=== PATIENT | female | born 1965 | race Caucasian/White ===

== ENCOUNTER 2018-02-01 10:47 | Day surgery (SDC) | payer BC ==
[2018-02-01] MEDS ORDERED: PROPOFOL 40 ML (12:44)
[2018-02-01] MEDS ORDERED: MIDAZOLAM 1 MG/ML 2 ML INJ (12:44)
[2018-02-01] MEDS ORDERED: FENTAnyl 50 MCG/ML VIAL ×2 (12:44→13:46)
[2018-02-01] MEDS ORDERED: CEFAZOLIN 1 GM INJ (12:44)
[2018-02-01] MEDS ORDERED: ONDANSETRON 4 MG INJ (12:45)
[2018-02-01] MEDS ORDERED: FAMOTIDINE 20 MG INJ (12:45)
[2018-02-01] MEDS ORDERED: DEXAMETHASONE 4 MG/ML 1 ML INJ (12:45)
[2018-02-01] MEDS ORDERED: GLYCOPYRROLATE 0.4 MG INJ (13:38)
[2018-02-01] MEDS ORDERED: KETOROLAC 30 MG INJ (13:39)
[2018-02-01] MEDS ORDERED: PROVENTIL HFA 6.7GM INHALER (13:54)
[2018-02-01] MEDS ORDERED: DIPHENHYDRAMINE 50 MG INJ IV (14:30)
[2018-02-01] MEDS ORDERED: FENTAnyl 50 MCG/ML VIAL IV ×2 (14:30)
[2018-02-01] MEDS ORDERED: ALBUTEROL 0.083% (NEB) 2.5 MG/3 ML AMP HHN (14:30)
[2018-02-01] MEDS ORDERED: LABETALOL HCL 20MG INJ IV (14:30)
[2018-02-01] MEDS ORDERED: HYDROmorphONE 1 MG/5 ML IV SYRINGE IV ×2 (14:30)
[2018-02-01] MEDS ORDERED: morphine (1 MG/ML) 10ML SYRINGE IV ×2 (14:30)
[2018-02-01] MEDS ORDERED: OXYCODONE/ACETAMINOPHEN (5/325) TAB PO ×2 (14:30)
[2018-02-01] MEDS ORDERED: MEPERIDINE 25 MG INJ IV (14:30)
[2018-02-01] MEDS ORDERED: ONDANSETRON 4 MG INJ IV (14:30)
== END 2018-02-01 15:18 | disposition home or self-care (01) ==
LOC: SDS 10:47
DX: N93.8 Other specified abnormal uterine and vaginal bleeding (principal)
CPT/HCPCS: 58120; 86850; 86900; 86901; 88305

== ENCOUNTER 2018-05-16 13:25 | Inpatient (IN) | payer BC ==
[~2018-05-16 13:25] MED LIST: LIDOCAINE 2% (SDV) 5 ML INJ
[2018-05-16 15:07] LABS: HEMATOCRIT 27.3 % (37.0-47.0); HEMOGLOBIN 8.3 g/dl (12.0-16.0)
[2018-05-16] MEDS ORDERED: ALBUTEROL 0.083% (NEB) 2.5 MG/3 ML AMP HHN (15:30)
[2018-05-16] MEDS ORDERED: DIPHENHYDRAMINE 50 MG INJ IV ×2 (15:30→18:00)
[2018-05-16] MEDS ORDERED: FENTAnyl 50 MCG/ML VIAL IV (15:30)
[2018-05-16] MEDS ORDERED: METOCLOPRAMIDE 10 MG INJ IV (15:30)
[2018-05-16] MEDS ORDERED: ROPIVACAINE 0.5 % 30 ML VIAL (15:57)
[2018-05-16] MEDS ORDERED: FENTAnyl 50 MCG/ML VIAL (15:57)
[2018-05-16] MEDS ORDERED: ROCURONIUM 50 MG INJ (17:35)
[2018-05-16] MEDS ORDERED: PROPOFOL 20 ML (17:35)
[2018-05-16] MEDS ORDERED: SUCCINYLCHOLINE CHLORIDE 100 MG/5 ML SYG IV (17:35)
[2018-05-16] MEDS ORDERED: GLYCOPYRROLATE 0.4 MG INJ (17:35)
[2018-05-16] MEDS ORDERED: CEFAZOLIN 1 GM INJ (17:35)
[2018-05-16] MEDS ORDERED: NEOSTIGMINE 10 MG INJ (17:35)
[2018-05-16] MEDS ORDERED: ONDANSETRON 4 MG INJ IV (18:00)
[2018-05-16] MEDS ORDERED: ACETAMINOPHEN 325 MG TAB PO (18:00)
[2018-05-16] MEDS: MEPERIDINE 25 MG INJ IV (18:10)
[2018-05-16] MEDS: ONDANSETRON 4 MG INJ IV (18:11)
[2018-05-16] MEDS: HYDROmorphONE 1 MG/5 ML IV SYRINGE IV ×5 (18:15→18:40)
[2018-05-16] MEDS: HYDROCODONE/APAP (5/325) TAB PO (18:44)
[2018-05-16 18:45] LABS: ADD MAN DIFF? NO
[2018-05-16 18:47] LABS: WHITE BLOOD COUNT 16.4 10^3/ul (4.8-10.8)
[2018-05-16 18:47] LABS: BASOPHIL # 0.1 10^3/ul (0.0-0.1); BASOPHILS % 0.4 % (0.0-2.0); EOSINOPHILS % 0.1 % (0.0-7.0); HEMATOCRIT 24.5 % (37.0-47.0); HEMOGLOBIN 7.3 g/dl (12.0-16.0); LYMPHOCYTES # 1.3 10^3/ul (0.8-2.9); LYMPHOCYTES % 8.2 % (15.0-51.0); MEAN CORPUSCULAR HGB CONC 29.8 g/dl (32.0-37.0); MEAN CORPUSCULAR VOLUME 90.7 fl (82.0-101.0); MEAN PLATELET VOLUME 11.2 fl (7.4-10.4); MONOCYTE # 0.7 10^3/ul (0.3-0.9); MONOCYTES % 4.1 % (0.0-11.0); NEUTROPHIL # 14.2 10^3/ul (1.6-7.5); NEUTROPHILS % 86.6 % (39.0-77.0); PLATELET COUNT 316 10^3/UL (140-415); RED CELL DISTRIBUTION WIDTH 14.8 % (11.5-14.5)
[2018-05-16 18:54] LABS: HOLD TRANSMISSIONS 1
[2018-05-16 19:06] LABS: ANION GAP 9 (5-13); BLOOD UREA NITROGEN 7 mg/dl (7-20); CARBON DIOXIDE 22 mmol/L (21-31); CHLORIDE 108 mmol/L (97-110); CREATININE 0.64 mg/dl (0.44-1.00); Estimated GFR > 60 mL/min (>60); GLUCOSE 129 mg/dl (70-220); POTASSIUM 3.6 mmol/L (3.5-5.1); SODIUM 139 mmol/L (135-144)
[2018-05-16 19:14] LABS: CALCIUM 7.7 mg/dl (8.4-10.2)
[2018-05-16] MEDS: FENTAnyl 50 MCG/ML VIAL IV (19:37)
[2018-05-16] MEDS: D5-NS + KCL 20 MEQ 1,000 ML IV (20:59)
[2018-05-16] MEDS: FAMOTIDINE 20 MG TAB PO (21:00)
[2018-05-17] MEDS: morphine 2 MG INJ IV ×4 (02:29→10:20)
[2018-05-17] MEDS: D5-NS + KCL 20 MEQ 1,000 ML IV ×3 (05:07→20:00)
[2018-05-17 05:43] LABS: ALANINE AMINOTRANSFERASE 27 IU/L (13-69); ALBUMIN 3.2 g/dl (3.3-4.9); ALBUMIN/GLOBULIN RATIO 1.39; ALKALINE PHOSPHATASE 41 IU/L (42-121); ANION GAP 8 (5-13); ASPARTATE AMINO TRANSFERASE 24 IU/L (15-46); BILIRUBIN,INDIRECT 0.1 mg/dl (0-1.1); BILIRUBIN,TOTAL 0.1 mg/dl (0.2-1.3); BLOOD UREA NITROGEN 7 mg/dl (7-20); CALCIUM 8.2 mg/dl (8.4-10.2); CARBON DIOXIDE 23 mmol/L (21-31); CHLORIDE 108 mmol/L (97-110); CREATININE 0.54 mg/dl (0.44-1.00); Estimated GFR > 60 mL/min (>60); GLUCOSE 148 mg/dl (70-220); POTASSIUM 4.2 mmol/L (3.5-5.1); SODIUM 139 mmol/L (135-144); TOTAL PROTEIN 5.5 g/dl (6.1-8.1)
[2018-05-17] MEDS: FAMOTIDINE 20 MG TAB PO ×2 (09:14→20:41)
[2018-05-17 09:35] LABS: ADD MAN DIFF? NO
[2018-05-17 09:39] LABS: BASOPHILS % 0.3 % (0.0-2.0); HEMATOCRIT 23.4 % (37.0-47.0); HEMOGLOBIN 7.1 g/dl (12.0-16.0); LYMPHOCYTES # 0.9 10^3/ul (0.8-2.9); LYMPHOCYTES % 8.6 % (15.0-51.0); MEAN CORPUSCULAR HEMOGLOBIN 27.1 pg (29.0-33.0); MEAN CORPUSCULAR HGB CONC 30.3 g/dl (32.0-37.0); MEAN CORPUSCULAR VOLUME 89.3 fl (82.0-101.0); MEAN PLATELET VOLUME 10.7 fl (7.4-10.4); MONOCYTE # 1.1 10^3/ul (0.3-0.9); MONOCYTES % 10.2 % (0.0-11.0); NEUTROPHIL # 8.6 10^3/ul (1.6-7.5); NEUTROPHILS % 80.5 % (39.0-77.0); PLATELET COUNT 275 10^3/UL (140-415); RED BLOOD COUNT 2.62 10^6/ul (4.20-5.40); RED CELL DISTRIBUTION WIDTH 14.9 % (11.5-14.5)
[2018-05-17 09:39] LABS: WHITE BLOOD COUNT 10.7 10^3/ul (4.8-10.8)
[2018-05-17 09:57] LABS: ANION GAP 7 (5-13); BLOOD UREA NITROGEN 6 mg/dl (7-20); CALCIUM 8.1 mg/dl (8.4-10.2); CARBON DIOXIDE 23 mmol/L (21-31); CHLORIDE 108 mmol/L (97-110); CREATININE 0.55 mg/dl (0.44-1.00); Estimated GFR > 60 mL/min (>60); GLUCOSE 137 mg/dl (70-220); POTASSIUM 4.1 mmol/L (3.5-5.1); SODIUM 138 mmol/L (135-144)
[2018-05-17] MEDS: HYDROmorphONE 0.5 MG/0.5 ML SYG IV (11:07)
[2018-05-17] MEDS: HYDROmorphONE 1 MG/ML SYG IV ×4 (12:55→20:00)
[2018-05-18] MEDS: HYDROmorphONE 1 MG/ML SYG IV ×6 (00:54→17:22)
[2018-05-18] MEDS: D5-NS + KCL 20 MEQ 1,000 ML IV ×2 (04:06→15:16)
[2018-05-18 05:04] LABS: ADD MAN DIFF? NO
[2018-05-18 05:09] LABS: WHITE BLOOD COUNT 8.4 10^3/ul (4.8-10.8)
[2018-05-18 05:09] LABS: ABNORMAL IP MESSAGE 1; BASOPHILS % 0.4 % (0.0-2.0); EOSINOPHILS % 0.1 % (0.0-7.0); HEMATOCRIT 22.8 % (37.0-47.0); LYMPHOCYTES # 0.6 10^3/ul (0.8-2.9); LYMPHOCYTES % 6.9 % (15.0-51.0); MEAN CORPUSCULAR HEMOGLOBIN 26.8 pg (29.0-33.0); MEAN CORPUSCULAR HGB CONC 30.3 g/dl (32.0-37.0); MEAN CORPUSCULAR VOLUME 88.7 fl (82.0-101.0); MEAN PLATELET VOLUME 11.3 fl (7.4-10.4); MONOCYTE # 0.9 10^3/ul (0.3-0.9); MONOCYTES % 11.1 % (0.0-11.0); NEUTROPHIL # 6.8 10^3/ul (1.6-7.5); PLATELET COUNT 280 10^3/UL (140-415); RED BLOOD COUNT 2.57 10^6/ul (4.20-5.40); RED CELL DISTRIBUTION WIDTH 15.4 % (11.5-14.5)
[2018-05-18 05:35] LABS: ANION GAP 5 (5-13); BLOOD UREA NITROGEN 3 mg/dl (7-20); CALCIUM 8.5 mg/dl (8.4-10.2); CARBON DIOXIDE 24 mmol/L (21-31); CHLORIDE 112 mmol/L (97-110); Estimated GFR > 60 mL/min (>60); GLUCOSE 124 mg/dl (70-220); POTASSIUM 3.9 mmol/L (3.5-5.1); SODIUM 141 mmol/L (135-144)
[2018-05-18 05:52] LABS: HEMOGLOBIN 6.9 g/dl (12.0-16.0)
[2018-05-18 05:53] LABS: POSITIVE DIFF @See below
[2018-05-18] MEDS: FAMOTIDINE 20 MG TAB PO ×2 (09:00→21:03)
[2018-05-18] MEDS: ACETAMINOPHEN 325 MG TAB PO (12:17)
[2018-05-18] MEDS: DIPHENHYDRAMINE 50 MG CAP PO (12:17)
[2018-05-18 12:30] LABS: IMMEDIATE SPIN CROSSMATCH 1 1
[2018-05-18] MEDS: HYDROCODONE/APAP (5/325) TAB PO (21:04)
[2018-05-19] MEDS: D5-NS + KCL 20 MEQ 1,000 ML IV ×4 (00:06→23:33)
[2018-05-19] MEDS: HYDROCODONE/APAP (5/325) TAB PO ×2 (02:38→18:16)
[2018-05-19 05:30] LABS: ADD MAN DIFF? NO
[2018-05-19 05:34] LABS: WHITE BLOOD COUNT 6.3 10^3/ul (4.8-10.8)
[2018-05-19 05:34] LABS: BASOPHILS % 0.6 % (0.0-2.0); EOSINOPHILS # 0.1 10^3/ul (0.0-0.5); EOSINOPHILS % 1.3 % (0.0-7.0); HEMOGLOBIN 7.9 g/dl (12.0-16.0); LYMPHOCYTES # 0.8 10^3/ul (0.8-2.9); LYMPHOCYTES % 12.8 % (15.0-51.0); MEAN CORPUSCULAR HEMOGLOBIN 26.8 pg (29.0-33.0); MEAN CORPUSCULAR HGB CONC 31.6 g/dl (32.0-37.0); MEAN CORPUSCULAR VOLUME 84.7 fl (82.0-101.0); MEAN PLATELET VOLUME 11.5 fl (7.4-10.4); MONOCYTE # 0.8 10^3/ul (0.3-0.9); MONOCYTES % 12.1 % (0.0-11.0); NEUTROPHIL # 4.6 10^3/ul (1.6-7.5); NEUTROPHILS % 72.7 % (39.0-77.0); PLATELET COUNT 232 10^3/UL (140-415); RED BLOOD COUNT 2.95 10^6/ul (4.20-5.40); RED CELL DISTRIBUTION WIDTH 15.7 % (11.5-14.5)
[2018-05-19 06:21] LABS: ANION GAP 5 (5-13); BLOOD UREA NITROGEN 3 mg/dl (7-20); CALCIUM 8.4 mg/dl (8.4-10.2); CARBON DIOXIDE 25 mmol/L (21-31); CHLORIDE 109 mmol/L (97-110); CREATININE 0.56 mg/dl (0.44-1.00); Estimated GFR > 60 mL/min (>60); GLUCOSE 94 mg/dl (70-220); POTASSIUM 3.3 mmol/L (3.5-5.1); SODIUM 139 mmol/L (135-144)
[2018-05-19] MEDS: HYDROmorphONE 1 MG/ML SYG IV ×3 (08:58→23:58)
[2018-05-19] MEDS: FAMOTIDINE 20 MG TAB PO ×2 (08:58→21:35)
[2018-05-19] MEDS: POTASSIUM CHLORIDE (SR) 20 MEQ TAB PO (14:43)
[2018-05-20] MEDS: HYDROCODONE/APAP (5/325) TAB PO ×5 (03:34→21:30)
[2018-05-20] MEDS: D5-NS + KCL 20 MEQ 1,000 ML IV ×2 (05:40→13:05)
[2018-05-20] MEDS: FAMOTIDINE 20 MG TAB PO ×2 (08:48→21:30)
[2018-05-20 09:29] LABS: ADD MAN DIFF? NO
[2018-05-20 09:32] LABS: BASOPHILS % 0.7 % (0.0-2.0); EOSINOPHILS # 0.2 10^3/ul (0.0-0.5); EOSINOPHILS % 5.4 % (0.0-7.0); HEMATOCRIT 26.8 % (37.0-47.0); HEMOGLOBIN 8.2 g/dl (12.0-16.0); LYMPHOCYTES # 0.7 10^3/ul (0.8-2.9); LYMPHOCYTES % 17.1 % (15.0-51.0); MEAN CORPUSCULAR HGB CONC 30.6 g/dl (32.0-37.0); MEAN CORPUSCULAR VOLUME 85.1 fl (82.0-101.0); MEAN PLATELET VOLUME 11.6 fl (7.4-10.4); MONOCYTE # 0.6 10^3/ul (0.3-0.9); MONOCYTES % 13.8 % (0.0-11.0); NEUTROPHIL # 2.7 10^3/ul (1.6-7.5); NEUTROPHILS % 62.8 % (39.0-77.0); PLATELET COUNT 243 10^3/UL (140-415); RED BLOOD COUNT 3.15 10^6/ul (4.20-5.40); RED CELL DISTRIBUTION WIDTH 15.9 % (11.5-14.5)
[2018-05-20 09:32] LABS: WHITE BLOOD COUNT 4.3 10^3/ul (4.8-10.8)
[2018-05-20 09:47] LABS: ANION GAP 7 (5-13); BLOOD UREA NITROGEN 3 mg/dl (7-20); CALCIUM 8.7 mg/dl (8.4-10.2); CARBON DIOXIDE 26 mmol/L (21-31); CHLORIDE 108 mmol/L (97-110); CREATININE 0.58 mg/dl (0.44-1.00); Estimated GFR > 60 mL/min (>60); GLUCOSE 101 mg/dl (70-220); POTASSIUM 3.8 mmol/L (3.5-5.1); SODIUM 141 mmol/L (135-144)
[2018-05-20] MEDS ORDERED: HYDROCODONE/APAP (5/325) TAB PO (10:00)
[2018-05-21] MEDS: HYDROCODONE/APAP (5/325) TAB PO ×4 (01:18→22:40)
[2018-05-21 05:17] LABS: ADD MAN DIFF? NO
[2018-05-21 05:24] LABS: BASOPHIL # 0.1 10^3/ul (0.0-0.1); EOSINOPHILS # 0.3 10^3/ul (0.0-0.5); EOSINOPHILS % 6.5 % (0.0-7.0); HEMATOCRIT 27.1 % (37.0-47.0); HEMOGLOBIN 8.5 g/dl (12.0-16.0); LYMPHOCYTES # 1.1 10^3/ul (0.8-2.9); LYMPHOCYTES % 22.1 % (15.0-51.0); MEAN CORPUSCULAR HEMOGLOBIN 26.3 pg (29.0-33.0); MEAN CORPUSCULAR HGB CONC 31.4 g/dl (32.0-37.0); MEAN CORPUSCULAR VOLUME 83.9 fl (82.0-101.0); MEAN PLATELET VOLUME 11.6 fl (7.4-10.4); MONOCYTE # 0.7 10^3/ul (0.3-0.9); NEUTROPHIL # 2.7 10^3/ul (1.6-7.5); NEUTROPHILS % 56.2 % (39.0-77.0); PLATELET COUNT 271 10^3/UL (140-415); RED BLOOD COUNT 3.23 10^6/ul (4.20-5.40); RED CELL DISTRIBUTION WIDTH 15.8 % (11.5-14.5)
[2018-05-21 05:24] LABS: WHITE BLOOD COUNT 4.8 10^3/ul (4.8-10.8)
[2018-05-21 05:59] LABS: ANION GAP 9 (5-13); BLOOD UREA NITROGEN 5 mg/dl (7-20); CALCIUM 9.1 mg/dl (8.4-10.2); CARBON DIOXIDE 27 mmol/L (21-31); CHLORIDE 104 mmol/L (97-110); CREATININE 0.65 mg/dl (0.44-1.00); Estimated GFR > 60 mL/min (>60); GLUCOSE 97 mg/dl (70-220); POTASSIUM 3.6 mmol/L (3.5-5.1); SODIUM 140 mmol/L (135-144)
[2018-05-21] MEDS: FAMOTIDINE 20 MG TAB PO ×2 (08:56→20:47)
[2018-05-22 05:19] LABS: ADD MAN DIFF? NO
[2018-05-22 05:24] LABS: BASOPHIL # 0.1 10^3/ul (0.0-0.1); BASOPHILS % 0.9 % (0.0-2.0); EOSINOPHILS # 0.3 10^3/ul (0.0-0.5); EOSINOPHILS % 6.3 % (0.0-7.0); HEMATOCRIT 31.7 % (37.0-47.0); HEMOGLOBIN 9.8 g/dl (12.0-16.0); LYMPHOCYTES # 1.2 10^3/ul (0.8-2.9); LYMPHOCYTES % 22.2 % (15.0-51.0); MEAN CORPUSCULAR HEMOGLOBIN 25.6 pg (29.0-33.0); MEAN CORPUSCULAR HGB CONC 30.9 g/dl (32.0-37.0); MEAN CORPUSCULAR VOLUME 82.8 fl (82.0-101.0); MEAN PLATELET VOLUME 11.7 fl (7.4-10.4); MONOCYTE # 0.6 10^3/ul (0.3-0.9); MONOCYTES % 11.2 % (0.0-11.0); NEUTROPHIL # 3.1 10^3/ul (1.6-7.5); PLATELET COUNT 320 10^3/UL (140-415); RED BLOOD COUNT 3.83 10^6/ul (4.20-5.40); RED CELL DISTRIBUTION WIDTH 15.9 % (11.5-14.5)
[2018-05-22 05:24] LABS: WHITE BLOOD COUNT 5.3 10^3/ul (4.8-10.8)
[2018-05-22 05:46] LABS: ANION GAP 9 (5-13); BLOOD UREA NITROGEN 7 mg/dl (7-20); CALCIUM 9.6 mg/dl (8.4-10.2); CARBON DIOXIDE 28 mmol/L (21-31); CHLORIDE 103 mmol/L (97-110); Estimated GFR > 60 mL/min (>60); GLUCOSE 99 mg/dl (70-220); POTASSIUM 4.1 mmol/L (3.5-5.1); SODIUM 140 mmol/L (135-144)
[2018-05-22] MEDS: FAMOTIDINE 20 MG TAB PO (09:23)
[2018-05-22] MEDS: HYDROCODONE/APAP (5/325) TAB PO (11:27)
== END 2018-05-22 16:00 | disposition home or self-care (01) | DRG 743 ==
LOC: REC 13:25 → MS1 19:56
PROC: 0UT90ZZ Resection of Uterus, Open Approach (ICD-10-PCS; principal; 2018-05-16 15:56)
PROC: 0UT20ZZ Resection of Bilateral Ovaries, Open Approach (ICD-10-PCS; 2018-05-16 15:56)
PROC: 0UT70ZZ Resection of Bilateral Fallopian Tubes, Open Approach (ICD-10-PCS; 2018-05-16 15:56)
DX: D25.1 Intramural leiomyoma of uterus (principal); D25.0 Submucous leiomyoma of uterus; R19.00 Intra-abdominal and pelvic swelling, mass and lump, unspecified site; D64.9 Anemia, unspecified
CPT/HCPCS: 36430; 80048; 80053; 84703; 85014; 85018; 85025; 86850; 86900; 86901; 86920; 88305; 90686